=== PATIENT | female | born 1975 | race Caucasian/White ===

== ENCOUNTER 2016-08-27 15:42 | Inpatient (IN) | payer OTHER ==
[~2016-08-27] VITALS: Ht 170.2 cm; Wt 82.5 kg
[2016-08-27 16:27] VITALS: BP 139/95; PULSE 97; TEMP 36.8; O2SAT 98; Ht 170.2 cm; Wt 82.5 kg
[2016-08-27] MEDS ORDERED: IBUP-1050 PO (16:41)
[2016-08-27] MEDS ORDERED: NURSING VERBAL MED ORDER ONE ×3 (18:15)
[2016-08-27] MEDS ORDERED: ONDANSETRON INJ 2 MG/ML 2 ML VIAL IV PRN (18:30)
[2016-08-27] MEDS ORDERED: NALOXONE HCL 0.4 MG/1 ML VIAL/CARP IV PRN (18:30)
[2016-08-27] MEDS ORDERED: IV FLUIDS COMPLETED PRN (18:45)
[2016-08-27] MEDS: SODIUM CHLORIDE 0.9% 1000ML 1,000 ML IV SCH (19:19)
[2016-08-27 19:27] VITALS: BP 147/100; PULSE 72; TEMP 36.8; O2SAT 100
[2016-08-27] MEDS: MORPHINE SULFATE 1 MG/ML 50 ML PCA SYR IV PRN (19:38)
[2016-08-27] MEDS: DEXAMETHASONE INJ 8 MG in SYRINGE 0 ML IV SCH (19:51)
[2016-08-27 20:54] VITALS: BP 141/90; PULSE 73; TEMP 36.6; O2SAT 99
[2016-08-27 21:31] VITALS: BP 136/85; PULSE 69; TEMP 36.6; O2SAT 99
[2016-08-27 22:50] VITALS: BP 125/88; PULSE 68; TEMP 36.5; O2SAT 98
[2016-08-28] VITALS (11 sets, daily range): BP systolic 99–124; BP diastolic 62–85; PULSE 62–95; TEMP 36.5–37; O2SAT 88–99
[2016-08-28] MEDS: DEXAMETHASONE INJ 8 MG in SYRINGE 0 ML IV SCH ×3 (01:59→18:46)
[2016-08-28] MEDS ORDERED: LIDOCAINE HCL 2% 2 ML VIAL (20MG/ML) ONE (06:44)
[2016-08-28] MEDS ORDERED: ROCURONIUM BROMIDE 10 MG/ML 5 ML VIAL ONE (06:44)
[2016-08-28] MEDS ORDERED: FENTANYL CITRATE INJ 50 MCG/1 ML 2 ML VIAL ONE ×2 (06:44)
[2016-08-28] MEDS ORDERED: MIDAZOLAM HCL 1 MG/ML 2ML VIAL ONE (06:44)
[2016-08-28] MEDS ORDERED: PROPOFOL IV EMULSION 10 MG/ML 20 ML VIAL IV ONE (06:44)
[2016-08-28] MEDS ORDERED: BUPIVACAINE/EPINEPHRINE 0.5% MPF 1:200,000 30 ML VIAL ONE (07:03)
[2016-08-28] MEDS ORDERED: THROMBIN FOR SOLN 20000 UNIT KIT ONE ×2 (07:03→08:31)
[2016-08-28] MEDS ORDERED: HEPARIN SOD (PORCINE) 1000 UNIT/ML 10 ML VIAL ONE (07:04)
[2016-08-28] MEDS ORDERED: THROMBIN 5000 UNITS KIT ONE ×2 (07:04→08:23)
[2016-08-28] MEDS ORDERED: BACITRACIN 50000 UNIT VIAL ONE (07:04)
[2016-08-28 07:21] LABS: HEMATOCRIT 38.3 % (37-47); MEAN CELL VOLUME 75.2 fL (80-100); MEAN CORPUSCULAR HEMOGLOBIN 24.6 pg (25-34); MEAN PLATELET VOLUME 10.1 fL (7.4-10.4); PLATELET COUNT 351 K/uL (130-400); RED BLOOD COUNT 5.09 M/uL (4.2-5.4); WHITE BLOOD COUNT 6.37 K/uL (4.8-10.8)
[2016-08-28 07:23] LABS: MEAN CORPUSCULAR HGB CONC 32.6 g/dl (32-36)
--- NOTE | 2016-08-28 07:29 | Discharge Instructions ---
Discharge Instructions Admission Reason for Admission: Caudaequina Discharge Discharge Diagnosis / Problem: Cauda Equina Discharge Goals Goal(s): Decrease discomfort, Improve function, Increase independence Activity Recommendations Activity Limitations: as noted below Lifting Limitations: no more than 5 pounds Exercise/Sports Limitations: until after follow-up appointment May Resume Sexual Activity: after follow-up appointment Shower/Bathe: may shower/bathe in 3 days . Instructions / Follow-Up Instructions / Follow-Up ACTIVITY RECOMMENDATIONS: SELF CARE INSTRUCTIONS AFTER THORACIC/LUMBAR FUSIONS 1. You may walk to your tolerance. It is good exercise for your legs and back. Expect some back and intermittent leg aches and pains. 2. You may perform "counter-top" level activities (make a sandwich, elizabeth with a project, etc.). 3. No bending or lifting of more than 10 pounds or back twisting of any nature (roll like a log when turning in bed). 4. You may ride in a car for 20-30 minutes at a time. No driving until after your first visit with your doctor. 5. Frequent changes of position and restricting sitting to 30 minutes at a time will help limit the amount of back spasms and stiffness you may experience. 6. You may discontinue the use of ambulatory aids (cane, crutches, etc.) once your strength and confidence allow. 7. You may tiger machine operator the shower and let water strike your incision when you arrive home at least once daily. Do not take a tub bath, sit in a hot tub or go into a swimming pool until after your first recheck in the office. SPECIAL CARE INSTRUCTIONS: VERY IMPORTANT TO READ AND REVIEW A. Your surgical incision has been closed with a cosmetic suture under the skin that will dissolve in about 6 weeks. In 14 days, you can use a pair of clean scissors and cut the suture that is left outside of the skin at the ends of your incision. 1. The small skin tapes can be removed 7 days after surgery if they have not fallen off by that point. 2. You may keep the wound open to air as much as possible to promote healing after post-op day number 5 unless told otherwise by your doctor. 3. If you think the wound looks like it is becoming infected (redness or worsening drainage) and/or you are experiencing fever, chill or worsening back pain and muscle spasms, contact the office so that we may evaluate you as soon as possible. B. Complications are uncommon, but please contact us if you have any signs or symptoms of: 1. wound infection (fever higher than 102.5 degrees F, redness, separation of wound, drainage, or increasing pain from the incision) 2. blood clots in legs (pain, swelling, redness and warmth in legs) 3. urinary tract infection (fever higher than 102.5 degrees F, burning upon urination or increased frequency of urination) 4. nerve problems (inability to walk on your toes or heels, numbness, loss of bowel or bladder control) 5. any other symptoms that concern you C. Please call the office at if you have any concerns or questions about your operation or recovery. D. No smoking! Smoking drastically decreases the chance of a solid fusion. E. Do not take any anti-inflammatory medications (Indocin, Advil, Motrin, Aspirin, Naprosyn, etc.) as these may inhibit the chance of a solid fusion. Tylenol is okay to take for pain. MANAGING PAIN AFTER SPINAL SURGERY 1. Narcotic medication is intended for short-term use and will be provided for surgical pain. Surgical pain usually lasts for a period of 4-6 weeks. Narcotic medication includes Percocet, Vicodin, Darvocet, Tylenol #3 or Lortab. 2. Longer-term pain is more appropriately treated with non-narcotic medication such as Tylenol ES. 3. Muscle spasm is not appropriately treated with narcotics. Muscle relaxers such as Soma, Flexeril or Skelaxin can be used along with Tylenol ES. 4. Remember that we all live with some "aches and pains". This is not unusual or uncommon after an injury or as we get older. a. Back pain is expected and may include muscle spasms for 4 to 6 weeks after surgery. The pain should gradually improve. If the pain worsens for no apparent reason, please contact the office. b. Intermittent leg pain may also be experienced and should not be concerned about unless it worsens for no apparent reason. If so, please contact the office. 5. We will provide appropriate medication within the normal guidelines of their prescribed use. We will also be very cautious and aware of potential abuse and extended duration of patients' medication needs. a. Pain medications are for your comfort and to assist with sleep and rest so that the tissue can heal. They are not provided in order to return to normal activity and should not be used through the day. To do so or worsening pain at night can result from ongoing tissue damage and development of tolerance to the prescribed medicine. 6. Please allow 2-3 days to process refills. Prescriptions will not be mailed but must be picked up at the office. FOLLOW UP VISIT: Keep your scheduled follow-up appointment. Any questions, please call the office at . Current Hospital Diet Patient's current hospital diet: Regular Diet Discharge Diet Recommended Diet: Regular Diet Pending Studies Studies pending at discharge: no Medical Emergencies . Who to Call and When: Medical Emergencies: If at any time you feel your situation is an emergency, please call 911 immediately. . Non-Emergent Contact Non-Emergency issues call your: Surgeon Call Non-Emergent contact if: temperature is above 101, your pain is not controlled, your pain is worsening, your pain is unusual for you, your pain is concerning you, wound has increased drainage, wound has increased redness, wound has increased pain . "Provider Documentation" section prepared by Xavier Kenny. VTE Core Measure Inpt VTE Proph given/why not?: Lorene [facility] Drug Monitoring Program Search Results: patient reviewed within database, no issues identified
[2016-08-28] MEDS ORDERED: EpHEDrine SULFATE INJ 50 MG/ML AMP IV PRN (07:30)
[2016-08-28] MEDS ORDERED: MoRPHine SULFATE 10 MG/ML CARP/VIAL IV PRN (07:30)
[2016-08-28] MEDS ORDERED: FENTANYL CITRATE INJ 50 MCG/1 ML 2 ML VIAL IV PRN (07:30)
[2016-08-28] MEDS ORDERED: ATROPINE SULFATE 0.1 MG/ML 5ML SYR IV PRN (07:30)
[2016-08-28] MEDS ORDERED: ONDANSETRON INJ 2 MG/ML 2 ML VIAL IV PRN ×2 (07:30→10:00)
[2016-08-28] MEDS ORDERED: CEFAZOLIN IV 2,000 MG/60 ML D5W IV ONE (07:37)
--- NOTE | 2016-08-28 07:46 | History and Physical ---
History & Physical Date Aug 28, 2016. Chief Complaint LBP and left leg pain History of Present Illness The patient is a 40 year old female with complaints of above that have included severe pain and limited walking. It worsened suddenly a week ago after sneezing and she developed severe L leg numbness and L buttock numbness, with poor bladder control. she has been unable to ambulate. has weakness in L foot. Past Medical/Surgical History ortho surgery Additional History Hepatic Disease: No Endocrine Disorder: No Kidney Disease: No Hypertension: No Heart Disease: No Bleeding Tendencies: No Infectious Diseases: No Allergies Coded Allergies: [place] (Verified Allergy, Severe, anaphylaxis, 08/27/16) Uncoded Allergies: passion fruit (Allergy, Severe, anaphylaxis, 08/27/16) Home Medications Scheduled Ibuprofen (Advil), 400-600 MG PO Q6H Physical Examination Skin: warm/dry Eyes: normal inspection ENT: normal ENT inspection Head: normocephalic, atraumatic Neck: supple Respiratory/Chest: lungs clear, no respiratory distress Cardiovascular: regular rate, rhythm Back: normal inspection Extremities: normal inspection, normal range of motion Neurologic/Psych: alert, normal reflexes, oriented x 3 Addiitonal Comments: loss of sensation to light touch in L perineum and L LE in S1, weakness in L ankle PF/DF Diagnosis L4-S1 stenosis/spondylolisthesis/HNP with cauda equina Plan of Treatment L4-S1 decompression/fusion risk of incomplete neurologic recovery
[2016-08-28 07:51] LABS: PREG INTERNAL NEGATIVE QC NEG CLEAR BACKGROUND; PREG INTERNAL POSITIVE QC POS CONTROL LINE
[2016-08-28] MEDS ORDERED: HYDROmorphone INJ 2 MG/ML SYR/VIAL ONE (08:18)
[2016-08-28] MEDS ORDERED: LARYING-O-JET KIT (LTA) EXT ONE ×2 (08:32)
[2016-08-28] MEDS ORDERED: ONDANSETRON INJ 2 MG/ML 2 ML VIAL ONE (08:33)
[2016-08-28] MEDS ORDERED: DEXAMETHASONE SOD INJ 4 MG/ML VIAL ONE (08:33)
--- NOTE | 2016-08-28 09:51 | [facility] Post Operative Brief Note ---
Immediate Operative Summary Operative Date Aug 28, 2016. Pre-Operative Diagnosis L4-S1 stenosis/spondylolisthesis/herniated nucleus pulposus with cauda equina Post-Operative Diagnosis L4-S1 stenosis/spondylolisthesis/herniated nucleus pulposus with cauda equina Procedure(s) Performed L4-S1 TLIF Surgeon Dr. Elizabeth Thread Grinder Tool Surgeon(s) Alex Kenny PA-C Estimated Blood Loss 200 Findings dict Specimens none per surgeon
[2016-08-28] MEDS ORDERED: LORAZEPAM 0.5 MG TAB PO PRN (10:00)
[2016-08-28] MEDS ORDERED: LORAZEPAM INJ 0.5 MG in SYRINGE 0.75 ML IV PRN (10:00)
[2016-08-28] MEDS ORDERED: PROMETHAZINE HCL INJ 12.5 MG in SODIUM CHLORIDE 0.9% 50ML 50 ML IV PRN (10:00)
[2016-08-28] MEDS ORDERED: ALUMINUM/MAGNESIUM SUSP 30 ML UDC PO PRN (10:00)
[2016-08-28] MEDS ORDERED: ACETAMINOPHEN IV 100 ML IV PRN (10:00)
[2016-08-28] MEDS ORDERED: MAGNESIUM HYDROXIDE SUSP 30 ML UDC PO PRN (10:00)
[2016-08-28] MEDS ORDERED: METOCLOPRAMIDE HCL INJ 5 MG/ML 2 ML VIAL IV PRN (10:00)
[2016-08-28] MEDS ORDERED: NALOXONE HCL 0.4 MG/1 ML VIAL/CARP IV PRN (10:00)
[2016-08-28] MEDS ORDERED: BISACODYL 10 MG SUPP PR PRN (10:00)
[2016-08-28] MEDS ORDERED: SOD PHOSPHATE/SOD BIPHOSPHATE ENEMA 132 ML BTL PR PRN (10:00)
[2016-08-28] MEDS ORDERED: hydrOXYzine HCL 25 MG TAB PO PRN (10:00)
[2016-08-28] MEDS ORDERED: FAMOTIDINE 20 MG TAB PO PRN (10:00)
[2016-08-28] MEDS: MORPHINE SULFATE 1 MG/ML 50 ML PCA SYR IV PRN ×3 (10:20→23:19)
--- NOTE | 2016-08-28 10:29 | DIAGNOSTIC IMAGING REPORT ---
INTRAOPERATIVE LUMBAR SPINE 3 VIEWS CLINICAL HISTORY: Spinal decompression COMPARISON STUDY: No previous studies for comparison. FINDINGS: 11 seconds of fluoroscopic time was utilized. There are postsurgical changes of discectomies with placement of interbody spacers at the L3-4 and L4-5 levels. There is posterior pedicle screw fixation at the L4,L5 and S1 levels. 3 intraoperative fluoroscopic spot images were acquired. IMPRESSION: Postsurgical changes as described above. Electronically signed by: Krishna Borges M.D. 08/28/2016 10:27 AM Dictated Date/Time: 08/28/2016 10:26 AM
[2016-08-28] MEDS ORDERED: DiphenhydrAMINE HCL 50 MG/ML VIAL ONE (10:33)
[2016-08-28] MEDS ORDERED: NURSING VERBAL MED ORDER ONE (10:35)
--- NOTE | 2016-08-28 10:44 | Anesthesiology Progress Note ---
Anesthesia Post Op Note Date & Time Aug 28, 2016 at 10:44 Vital Signs Pain Intensity: 4 Vital Signs Past 12 Hours Date Time Temp Pulse Resp B/P Pulse Ox O2 Delivery O2 Flow Rate FiO2 08/28/16 10:35 36.3 66 12 118/73 98 Nasal Cannula 4 08/28/16 10:25 74 13 140/84 100 Mask 10 08/28/16 10:15 78 12 123/94 100 Mask 10 08/28/16 10:09 37.0 77 16 145/107 100 Mask 10 08/28/16 03:21 36.6 62 16 116/74 99 Room Air 08/27/16 22:50 36.5 68 16 125/88 98 Room Air Notes Mental Status: alert / awake / arousable, participated in evaluation Pt Amnestic to Procedure: Yes Nausea / Vomiting: adequately controlled Pain: adequately controlled Airway Patency, RR, SpO2: stable & adequate BP & HR: stable & adequate Hydration State: stable & adequate Anesthetic Complications: no major complications apparent
[2016-08-28] MEDS: SODIUM CHLORIDE 0.9% 1000ML 1,000 ML IV SCH ×3 (12:52→18:43)
[2016-08-28] MEDS: DEXAMETHASONE INJ 6 MG in SYRINGE 0 ML IV SCH (16:15)
[2016-08-28] MEDS: CEFAZOLIN IV 2,000 MG in DEXTROSE 5% 50ML 50 ML IV SCH (18:46)
[2016-08-28] MEDS: DOCUSATE SODIUM/SENNA 50/8.6MG TAB PO SCH (21:44)
[2016-08-29] MEDS: DEXAMETHASONE INJ 6 MG in SYRINGE 0 ML IV SCH ×2 (00:10→09:05)
[2016-08-29] MEDS: CEFAZOLIN IV 2,000 MG in DEXTROSE 5% 50ML 50 ML IV SCH (02:06)
[2016-08-29 03:48] VITALS: BP 103/70; PULSE 62; TEMP 36.9; O2SAT 91
[2016-08-29] MEDS ORDERED: NURSING DECISION MEDICATION ORDER SCH (05:45)
[2016-08-29] MEDS ORDERED: HYDROmorphone INJ 1 MG/ML SYR IV PRN (06:00)
[2016-08-29] MEDS ORDERED: CEFAZOLIN IV 2,000 MG/60 ML D5W IV ONE (06:00)
[2016-08-29] MEDS ORDERED: DC PCA SCH (06:00)
[2016-08-29] MEDS ORDERED: HYDROmorphone INJ 0.5 MG/0.5 ML SYR IV PRN (06:00)
[2016-08-29 06:08] LABS: COMPLETE YES; HEMATOCRIT 31.6 % (37-47); IG% 0.3 %; LYMPH % 5.8 %; LYMPH ABS # 1.08 K/uL (1.2-3.4); MEAN CELL VOLUME 77.8 fL (80-100); MEAN CORPUSCULAR HEMOGLOBIN 24.4 pg (25-34); MEAN CORPUSCULAR HGB CONC 31.3 g/dl (32-36); MEAN PLATELET VOLUME 10.4 fL (7.4-10.4); NEUT % 90.9 %; PLATELET COUNT 284 K/uL (130-400); RED BLOOD COUNT 4.06 M/uL (4.2-5.4); WHITE BLOOD COUNT 18.51 K/uL (4.8-10.8)
[2016-08-29 06:36] LABS: BUN/CREATININE RATIO 10.8 (10-20); CALCIUM 8.6 mg/dl (8.5-10.1); CREATININE 0.75 mg/dl (0.60-1.20); POTASSIUM 4.2 mmol/L (3.5-5.1)
[2016-08-29 07:11] VITALS: BP 111/74; PULSE 78; TEMP 36.8; O2SAT 90
--- NOTE | 2016-08-29 11:34 | Orthopedic Progress Note ---
Orthopedic Progress Note Date of Service Aug 29, 2016. Subjective Post OP Day: 1 Reports: feeling well, pain controlled w PO medications, Denies: SOB, calf pain , chest pain, complaints, light headedness, nausea / vomiting, using ACCOUNTANT SYSTEMS Objective calves soft nontender, N/V intact, dressing C/D/I, A&O x3, hemovac drainage Date Time Temp Pulse Resp B/P Pulse Ox O2 Delivery O2 Flow Rate FiO2 08/29/16 07:30 Room Air 08/29/16 07:11 36.8 78 20 111/74 90 Room Air 08/29/16 03:48 36.9 62 16 103/70 91 Room Air 08/29/16 00:10 Room Air 08/28/16 23:10 36.5 62 16 109/62 97 Room Air 08/28/16 19:06 36.7 82 18 99/66 92 Room Air 08/28/16 15:45 Room Air 08/28/16 15:17 37.0 80 18 115/65 94 Room Air 08/28/16 14:32 37.0 85 16 116/74 95 Room Air 08/28/16 13:22 36.6 95 16 115/76 94 Room Air 08/28/16 12:45 36.7 90 16 115/76 95 Room Air 08/28/16 11:59 93 Room Air 08/28/16 11:49 36.6 70 16 124/85 93 Room Air Laboratory Results 24 Hours: Test 08/29/16 05:43 White Blood Count 18.51 K/uL Red Blood Count 4.06 M/uL Hemoglobin 9.9 g/dL Hematocrit 31.6 % Mean Corpuscular Volume 77.8 fL Mean Corpuscular Hemoglobin 24.4 pg Mean Corpuscular Hemoglobin Concent 31.3 g/dl Platelet Count 284 K/uL Mean Platelet Volume 10.4 fL Neutrophils (%) (Auto) 90.9 % Lymphocytes (%) (Auto) 5.8 % Monocytes (%) (Auto) 3.0 % Eosinophils (%) (Auto) 0.0 % Basophils (%) (Auto) 0.0 % Neutrophils # (Auto) 16.82 K/uL Lymphocytes # (Auto) 1.08 K/uL Monocytes # (Auto) 0.56 K/uL Eosinophils # (Auto) 0.00 K/uL Basophils # (Auto) 0.00 K/uL Assessment & Plan Assessment: PT, scds, d/c tuesday
[2016-08-29 15:11] VITALS: BP 120/72; PULSE 54; TEMP 36.4; O2SAT 94
[2016-08-29] MEDS ORDERED: NURSING VERBAL MED ORDER PRN (16:45)
[2016-08-29] MEDS: OXYCODONE HCL IR 5 MG TAB (IMMEDIATE RELEASE) PO PRN ×2 (17:25→21:54)
[2016-08-29] MEDS: DOCUSATE SODIUM/SENNA 50/8.6MG TAB PO SCH (21:53)
[2016-08-29 23:12] VITALS: BP 114/74; PULSE 66; TEMP 36.7; O2SAT 93
[2016-08-30] MEDS: OXYCODONE HCL IR 5 MG TAB (IMMEDIATE RELEASE) PO PRN ×3 (03:04→11:26)
[2016-08-30] MEDS ORDERED: POLYETHYLENE (MIRALAX) 17 GM PACK PO SCH (06:00)
[2016-08-30 06:46] VITALS: BP 97/59; PULSE 60; TEMP 36.6; O2SAT 93
--- NOTE | 2016-08-30 07:01 | Orthopedic Progress Note ---
Orthopedic Progress Note Date of Service Aug 30, 2016. Subjective Post OP Day: 2 Reports: feeling well, pain controlled w PO medications, Denies: SOB, calf pain , chest pain, complaints, light headedness, nausea / vomiting Additional Notes: She continues to do well with reported decreasing numbness in left leg. She denies pain or weakness of the lower extremity. Ambulating well with controlled pain. Medically stable with otherwise no issues to report this AM. Objective calves soft nontender, N/V intact, capillary refill less than 2 sec., dressing C /D/I, A&O x3, toes mobile, hemovac drainage Date Time Temp Pulse Resp B/P Pulse Ox O2 Delivery O2 Flow Rate FiO2 08/30/16 06:46 36.6 60 16 97/59 93 Room Air 08/29/16 23:15 Room Air 08/29/16 23:12 36.7 66 16 114/74 93 Room Air 08/29/16 16:30 Room Air 08/29/16 15:11 36.4 54 16 120/72 94 Room Air 08/29/16 07:30 Room Air 08/29/16 07:11 36.8 78 20 111/74 90 Room Air Assessment & Plan Assessment: Continue PT, change dressing and d/c drain, dvt prophylaxis, discharge home today
[2016-08-30] MEDS ORDERED: RXC5 PO (07:02)
--- NOTE | 2016-08-30 07:15 | Anesthesiology Progress Note ---
Anesthesia Post Op Note Date & Time Aug 30, 2016 at 07:14 Vital Signs Vital Signs Past 12 Hours Date Time Temp Pulse Resp B/P Pulse Ox O2 Delivery O2 Flow Rate FiO2 08/30/16 06:46 36.6 60 16 97/59 93 Room Air 08/29/16 23:15 Room Air 08/29/16 23:12 36.7 66 16 114/74 93 Room Air Notes Mental Status: alert / awake / arousable, participated in evaluation Pt Amnestic to Procedure: Yes Nausea / Vomiting: adequately controlled Pain: adequately controlled Airway Patency, RR, SpO2: stable & adequate BP & HR: stable & adequate Hydration State: stable & adequate Anesthetic Complications: no major complications apparent
[2016-08-30 08:00] VITALS: BP 119/76; TEMP 36.8; O2SAT 92
[2016-08-30 10:11] VITALS: BP 119/76; PULSE 60; TEMP 36.8; O2SAT 92
[2016-08-30 11:05] VITALS: O2SAT 92
--- NOTE | 2016-09-27 14:53 | Discharge Summary ---
Orthopedic Discharge Summary Admission Date/Reason Aug 28, 2016 at 09:53 Cauda Equina Syndrome. Discharge Date/Disposition Aug 30, 2016 Home Diagnosis Principal Diagnosis: same Procedure(s) Performed L4-S1 TLIF Admission Physical Exam As per Admitting History & Physical. Hospital Course Patient was admitted with symptoms and imaging concerning for cauda equina syndrome. She underwent urgent surgery and showed immediate improvement postop. Her pain was controlled and strength was improved. she had GI regimen and SCD's until d/c home in stable condition. Discharge Instructions Please refer to the electronic Patient Visit Report (Discharge Instructions) for additional information.
--- NOTE | 2016-09-27 16:55 | OPERATIVE REPORT ---
DATE OF OPERATION: 08/28/2016 PREOPERATIVE DIAGNOSES: 1. Massive L4-L5 and L5-S1 lumbar disk herniations. 2. L4-L5 and L5-S1 spinal stenosis. 3. Cauda equina syndrome. POSTOPERATIVE DIAGNOSES: Same. PROCEDURES: 1. L4 and L5 laminectomies with bilateral L4-L5 and L5-S1 medial facetectomies. 2. Segmental pedicle screw instrumentation -- bilateral L4, L5 and S1 with K2M Helix pedicle screws. 3. Posterolateral fusion L4-S1 -- bilateral with Infuse BMP on a collagen sponge, tricalcium phosphate, local bone, bone putty and bone marrow aspirate. 4. Right iliac crest bone marrow aspiration stem cell concentration with Arteriocyte application of bone graft. 5. Left L4-L5 transforaminal lumbar interbody fusion with K2M titanium mesh interbody spacer, local bone and bone putty. 6. Left L5-S1 transforaminal lumbar interbody fusion with K2M titanium mesh interbody spacer, local bone and bone putty. SURGEON: Dr. Elizabeth. MARKETING ACCOUNT EXECUTIVE: Xavier Kenny PA-C. Please note he participated in all portions of the procedure and was critical for performance of the procedure, participated in positioning, prepping, draping, retraction and wound closure. ANESTHESIA: General endotracheal anesthesia. COMPLICATIONS: None. ESTIMATED BLOOD LOSS: 200 mL. DESCRIPTION OF PROCEDURE: After identification of the patient and operative level, she was brought to the OR, where she underwent induction of general anesthesia. She was then positioned prone on the Ludwig OR table. All bony prominences were well padded. Care was taken to avoid pressure on the periorbital area. Lumbosacral area was sterilely prepped and draped in usual fashion. Antibiotics were administered. Time-out was performed. Level was confirmed and skin incision was made after infiltration of Marcaine with epinephrine. A skin incision from spinous process of L3 to the sacrum and then performed a routine posterior exposure out to the tips of the transverse processes and sacral ala. I then confirmed level with fluoroscopy and a marker the lamina of L5. I identified the operative levels, marked the operative levels and did a midline decompression with L4 and L5 laminectomies, removal of the flavum and medial facets as necessary. Large disk herniations were identified consistent with the preoperative findings. All loose disk material was removed and complete diskectomies were performed at each level. Care was taken to avoid manipulation of the dural tube during diskectomy. I confirmed the nerve roots were decompressed and then proceeded to place pedicle screws bilaterally at L4, L5 and S1 with K2M Helix pedicle screws. I checked position with fluoroscopy and then aspirated bone marrow from the right iliac crest via separate stab incision with a PASSUR Aerospaceshidi needle construct with Arteriocyte system. I applied to bone graft bracer and then mixed this with a regular bone graft. I then did complete diskectomies at L4-L5 and L5-S1. I prepared each disk space with tesha and curettes for subsequent cage introduction. Cages filled bone. Cage size determined with paddle distractors and cages were inserted at both L4-L5 and L5-S1 after gentle retraction of dural tube. I then checked the cage position with fluoroscopy and lowered the Brayan frame to restore lordosis, applied rods and end caps for final tightening and irrigated with bacitracin solution. I decorticated the transverse process and facets with a high speed bur from L4 to the sacrum and then packed the lateral gutters with bone graft mixture of Infuse BMP on a collagen sponge, tricalcium phosphate and local bone, bone putty, bone marrow aspirate. I then confirmed hemostasis and closed in layered fashion over CHONG drain. All sponge and needle counts were correct at the end of the case. I attest to the content of the Intraoperative Record and any orders documented therein. Any exceptio ns are noted below.
== END 2016-08-30 11:40 | disposition home or self-care (01) | DRG 460 ==
LOC: INTOOBSV 15:59 → C.MSW 15:59 → OBSVTOIN 08-28 09:53
PROVIDERS: ADMIT Orthopaedic Surgery Orthopaedic Surgery of the Spine; ATTEND Orthopaedic Surgery Orthopaedic Surgery of the Spine
PROC: 0SG3071 Fusion of Lumbosacral Joint with Autologous Tissue Substitute, Posterior Approach, Posterior Column, Open Approach (ICD-10-PCS; principal; 2016-08-28 07:30)
PROC: 0SG00AJ Fusion of Lumbar Vertebral Joint with Interbody Fusion Device, Posterior Approach, Anterior Column, Open Approach (ICD-10-PCS; principal; 2016-08-28 07:30)
PROC: 0ST20ZZ Resection of Lumbar Vertebral Disc, Open Approach (ICD-10-PCS; principal; 2016-08-28 07:30)
PROC: 0SG0071 Fusion of Lumbar Vertebral Joint with Autologous Tissue Substitute, Posterior Approach, Posterior Column, Open Approach (ICD-10-PCS; principal; 2016-08-28 07:30)
PROC: 07DR3ZZ Extraction of Iliac Bone Marrow, Percutaneous Approach (ICD-10-PCS; principal; 2016-08-28 07:30)
PROC: 0ST40ZZ Resection of Lumbosacral Disc, Open Approach (ICD-10-PCS; principal; 2016-08-28 07:30)
PROC: 0SG30AJ Fusion of Lumbosacral Joint with Interbody Fusion Device, Posterior Approach, Anterior Column, Open Approach (ICD-10-PCS; principal; 2016-08-28 07:30)
DX: M48.07 Spinal stenosis, lumbosacral region (principal); G83.4 Cauda equina syndrome; M51.27 Other intervertebral disc displacement, lumbosacral region; M48.06 Spinal stenosis, lumbar region; M43.17 Spondylolisthesis, lumbosacral region